=== PATIENT | female | born 1985 | race Caucasian/White ===

== ENCOUNTER 2021-06-21 18:47 | Emergency (ER) | payer OTHER ==
[~2021-06-21] VITALS: Ht 157.5 cm; Wt 78.0 kg
[2021-06-21 18:53] VITALS: BP 122/87
--- NOTE | 2021-06-21 20:08 | PHYS DOC ---
Past History Past Surgical History: No Surgical History (KANCHAN GRAY HEADEND TECHNICIAN) Adult General Chief Complaint Chief Complaint: COUGH HPI HPI Patient is a 36-year-old female patient presented to the ED today with fever, cough, headaches and chills, symptoms began 3 days ago. Patient is in the ED with the son with similar complaints (KANCHAN GRAY HEADEND TECHNICIAN) Review of Systems Review of Systems Constitutional: Reports fever Eyes: Denies change in visual acuity, redness, or eye pain [] HENT: Denies nasal congestion or sore throat [] Respiratory: Reports cough, denies shortness of breath [] Cardiovascular: No additional information not addressed in HPI [] GI: Denies abdominal pain, nausea, vomiting, bloody stools or diarrhea [] : Denies dysuria or hematuria [] Musculoskeletal: Denies back pain or joint pain [] Integument: Denies rash or skin lesions [] Neurologic: reports headache, denies focal weakness or sensory changes [] All other systems were reviewed and found to be within normal limits, except as documented in this note. (KANCHAN GRAY HEADEND TECHNICIAN) Allergies Allergies Allergies Coded Allergies Type Severity Reaction Last Updated Verified No Known Drug Allergies 06/21/21 No (KANCHAN GRAY HEADEND TECHNICIAN) Physical Exam Physical Exam Constitutional: Well developed, well nourished, no acute distress, non-toxic appearance. [] HENT: Normocephalic, atraumatic, bilateral external ears normal, oropharynx moist, no oral exudates, nose normal. [] Eyes: PERRLA, EOMI, conjunctiva normal, no discharge. [] Neck: Normal range of motion, no tenderness, supple, no stridor. [] Cardiovascular:Heart rate regular rhythm, no murmur [] Lungs & Thorax: Bilateral breath sounds clear to auscultation [] Abdomen: Bowel sounds normal, soft, no tenderness, no masses, no pulsatile masses. [] Skin: Warm, dry, no erythema, no rash. [] Back: No tenderness, no CVA tenderness. [] Extremities: No tenderness, no cyanosis, no clubbing, ROM intact, no edema. [] Neurologic: Alert and oriented X 3, normal motor function, normal sensory function, no focal deficits noted. [] Psychologic: Affect normal, judgement normal, mood normal. [] (KANCHAN GRAY HEADEND TECHNICIAN) Current Patient Data Vital Signs Vital Signs Date Time Temp Pulse Resp B/P (MAP) Pulse Ox O2 Delivery O2 Flow Rate FiO2 06/21/21 18:53 98.4 80 18 122/87 (99) 98 Room Air (KANCHAN GRAY Mireille HEADEND TECHNICIAN) EKG EKG [] (ISAACKANCHAN Mireille HEADEND TECHNICIAN) Radiology/Procedures Radiology/Procedures [] (KANCHAN GRAY Mireille HEADEND TECHNICIAN) Heart Score C/O Chest Pain: N/A Risk Factors: Risk Factors: DM, Current or recent (<one month) smoker, HTN, HLP, family history of CAD, obesity. Risk Scores: Risk Factors: DM, Current or recent (<one month) smoker, HTN, HLP, family history of CAD, obesity. (KANCHAN GRAY HEADEND TECHNICIAN) Course & Med Decision Making Course & Med Decision Making Pertinent Labs and Imaging studies reviewed. (See chart for details) This is a 36-year-old female patient presented to the ED today with headache, co ugh, fevers, symptoms began 3 days ago. Patient was tested for COVID-19, results will be called to have available, supportive care measures recommended (KANCHAN GRAY HEADEND TECHNICIAN) Course & Med Decision Making Did not see or evaluate patient.. Did not discuss patient with REAL ESTATE DEVELOPMENT MANAGER. Agree with REAL ESTATE DEVELOPMENT MANAGER's work-up and disposition per note (FRANCHESKA CONSTANTINO MD) Dragon Disclaimer Dragon Disclaimer This electronic medical record was generated, in whole or in part, using a voice recognition dictation system. (KANCHAN GRAY HEADEND TECHNICIAN) Departure Departure: Impression: Primary Impression: Person under investigation for COVID-19 Additional Impressions: Cough Headache Fever Disposition: HOME / SELF CARE / HOMELESS Condition: STABLE Referrals: PCP,NO (PCP) follow up with your doctor next week Patient Instructions: Cough, Adult, [id number], Fever, Headache, FAQs, Viral Infections Additional Instructions: You were tested for COVID-19, we will call you when results are available. Quarantine yourself until you get results from us. You can take Tylenol or Motrin as needed for pain or fever. Push fluids, maintain good hygiene. Problem Qualifiers Additional Impressions: Headache Headache type: unspecified Headache chronicity pattern: acute headache Intractability: not intractable Qualified Codes: R51.9 - Headache, unspecified Fever Fever type: unspecified Qualified Codes: R50.9 - Fever, unspecified KANCHAN GRAY APRN Jun 21, 2021 20:08 FRANCHESKA CONSTANTINO MD Jun 21, 2021 21:05
== END 2021-06-21 20:12 | disposition home or self-care (01) ==
LOC: EDBD 18:47 → ER 18:47
DX: U07.1 COVID-19 (principal)
CPT/HCPCS: 99283; C9803; U0003